=== PATIENT | female | born 1975 | race Caucasian/White ===

== ENCOUNTER 2018-04-26 09:43 | Outpatient (CLI) | payer OTHER ==
[~2018-04-26 09:43] MED LIST: VISTARIL25 MG PO; ZYRTEC10 MG PO
== END 2018-04-26 09:55 | disposition home or self-care (01) ==
LOC: LAB 09:43
DX: M79.1 Myalgia (principal); I95.89 Other hypotension; Z12.11 Encounter for screening for malignant neoplasm of colon; Z11.3 Encounter for screening for infections with a predominantly sexual mode of transmission; Z13.1 Encounter for screening for diabetes mellitus; Z11.4 Encounter for screening for human immunodeficiency virus [HIV]

== ENCOUNTER 2018-05-07 15:19 | Outpatient (CLI) | payer OTHER | END 2018-05-07 15:26 | disposition home or self-care (01) | LOC: SONOGRAMA 15:19 | DX: Z12.31 Encounter for screening mammogram for malignant neoplasm of breast (principal) ==

== ENCOUNTER 2019-07-09 17:19 | Outpatient (CLI) | payer OTHER | END 2019-07-10 09:23 | disposition home or self-care (01) | LOC: RAD 17:19 | DX: M54.2 Cervicalgia (principal) ==

== ENCOUNTER 2019-07-23 13:48 | Outpatient (CLI) | payer OTHER | END 2019-07-23 13:53 | disposition home or self-care (01) | LOC: SONOGRAMA 13:48 → MAMO-SONO 14:15 | DX: M77.11 Lateral epicondylitis, right elbow (principal); M54.5 Low back pain ==

== ENCOUNTER 2020-04-12 12:52 | Outpatient (CLI) | payer OTHER | END 2020-04-12 15:00 | disposition home or self-care (01) | LOC: PPH VACUNA 12:52 | DX: Z23 Encounter for immunization (principal) ==

== ENCOUNTER 2020-05-04 15:19 | Outpatient (CLI) | payer OTHER | END 2020-05-04 15:24 | disposition home or self-care (01) | LOC: RAD 15:19 | DX: Z01.812 Encounter for preprocedural laboratory examination (principal) ==

== ENCOUNTER 2020-09-17 07:25 | Outpatient (CLI) | payer OTHER | END 2020-09-17 07:30 | disposition home or self-care (01) | LOC: LAB 07:25 | PROVIDERS: ATTEND Obstetrics & Gynecology | DX: E03.8 Other specified hypothyroidism (principal); I10 Essential (primary) hypertension; Z20.09 Contact with and (suspected) exposure to other intestinal infectious diseases; E78.49 Other hyperlipidemia; N39.0 Urinary tract infection, site not specified; Z11.4 Encounter for screening for human immunodeficiency virus [HIV]; Z12.11 Encounter for screening for malignant neoplasm of colon; E55.9 Vitamin D deficiency, unspecified; Z21 Asymptomatic human immunodeficiency virus [HIV] infection status; R79.89 Other specified abnormal findings of blood chemistry ==

== ENCOUNTER 2020-09-20 13:25 | Outpatient (CLI) | payer OTHER | END 2020-09-20 13:45 | disposition home or self-care (01) | LOC: MAMO-SONO 13:25 | PROVIDERS: ATTEND Obstetrics & Gynecology | DX: Z12.31 Encounter for screening mammogram for malignant neoplasm of breast (principal); N64.59 Other signs and symptoms in breast; N64.89 Other specified disorders of breast; D24.1 Benign neoplasm of right breast; D24.2 Benign neoplasm of left breast ==

== ENCOUNTER → 2021-02-16 | Outpatient (CLI) | payer OTHER | END | disposition home or self-care (01) | LOC: LAB 12:07 | PROVIDERS: ATTEND Emergency Medicine Pediatric Emergency Medicine | DX: Z03.818 Encounter for observation for suspected exposure to other biological agents ruled out (principal) ==

== ENCOUNTER 2021-04-18 09:18 | Outpatient (CLI) | payer OTHER | END 2021-04-18 09:25 | disposition home or self-care (01) | LOC: RAD 09:18 | DX: R07.89 Other chest pain (principal) ==

== ENCOUNTER 2021-04-25 08:00 | Outpatient (CLI) | payer OTHER | END 2021-04-25 08:30 | disposition home or self-care (01) | LOC: PPH VACUNA 08:00 | PROVIDERS: ATTEND Emergency Medicine Pediatric Emergency Medicine | DX: Z23 Encounter for immunization (principal) ==

== ENCOUNTER 2021-05-10 08:00 | Outpatient (CLI) | payer OTHER | END 2021-05-10 08:20 | disposition home or self-care (01) | LOC: PPH VACUNA 08:00 | PROVIDERS: ATTEND Emergency Medicine Pediatric Emergency Medicine | DX: Z23 Encounter for immunization (principal) ==

== ENCOUNTER 2022-03-05 06:00 | Day surgery (SDC) | payer OTHER | END 2022-03-05 09:15 | disposition home or self-care (01) | LOC: AMB-ENDOS 06:00 | PROVIDERS: ATTEND Surgery | DX: Z12.11 Encounter for screening for malignant neoplasm of colon (principal) ==

== ENCOUNTER 2022-03-20 14:46 | Outpatient (CLI) | payer OTHER | END 2022-03-20 14:52 | disposition home or self-care (01) | LOC: RAD 14:46 | DX: Z11.1 Encounter for screening for respiratory tuberculosis (principal) ==

== ENCOUNTER 2022-03-27 08:00 | Outpatient (CLI) | payer OTHER | END 2022-03-27 08:05 | disposition home or self-care (01) | LOC: PPH VACUNA 08:00 | PROVIDERS: ATTEND Emergency Medicine Pediatric Emergency Medicine | DX: Z23 Encounter for immunization (principal) ==

== ENCOUNTER 2022-05-04 13:37 | Outpatient (CLI) | payer OTHER | END 2022-05-04 13:47 | disposition home or self-care (01) | LOC: PPH VACUNA 13:37 | PROVIDERS: ATTEND Emergency Medicine Pediatric Emergency Medicine | DX: Z23 Encounter for immunization (principal) ==

== ENCOUNTER 2022-07-09 14:02 | Outpatient (CLI) | payer OTHER | END 2022-07-09 14:07 | disposition home or self-care (01) | LOC: RAD 14:02 | PROVIDERS: ATTEND Anesthesiology | DX: Z01.818 Encounter for other preprocedural examination (principal) ==